=== PATIENT | male | born 1965 | race Caucasian/White ===

== ENCOUNTER 2019-09-11 16:14 | Emergency (ER) | payer OTHER ==
[~2019-09-11] VITALS: Ht 182.9 cm; Wt 104.0 kg
[~2019-09-11 16:14] MED LIST: TRAM50TA PO
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
[2019-09-11] MEDS ORDERED: ONDANSETRON PF 4 MG/2 ML VIAL. IVP ONE (16:45)
[2019-09-11] MEDS ORDERED: MORPHINE SULFATE 4 MG/ML VIAL. IV ONE (16:45)
--- NOTE | 2019-09-11 17:27 | RAD ---
CT HEAD AND CERVICAL SPINE WO, CT PELVIS WO CONTRAST, CT LUMBAR SPINE WO CONTRAST, CT THORACIC SPINE WO CONTRAST dated 09/11/2019 4:38 PM Indication:Reason: FELL OFF ROOF, HIT BACK OF HEAD, LOC, BACK PAIN, NECK PAIN, HEADACHE / Spl. Instructions: / History: Comparison: No comparison is available. Technique: Noncontrast images were performed. Sagittal and coronal reconstructions were obtained. One or more of the following individualized dose reduction techniques were utilized for this examination: 1. Automated exposure control 2. Adjustment of the mA and/or kV according to patient size 3. Use of iterative reconstruction technique Findings: CT head: There is no apparent intracranial hemorrhage or abnormal extra-axial fluid collection. No area of abnormal density is seen. The ventricles and basilar cisterns are normally positioned. Bone windows reveal no apparent fracture of the skull or abnormal sinus or mastoid opacification. CT cervical spine: Alignment is normal. There is no apparent loss of vertebral body height or prevertebral soft tissue swelling. No fracture line is seen. Mild degenerative changes are shown at the C5-6 and C6-7 discs. Evaluation of the soft tissue components of the spinal canal is limited without intrathecal contrast. CT thoracic spine: Alignment is normal. No acute fracture is identified. There are endplate irregularities throughout the mid and lower breast 6 spine. These are thought to be degenerative or developmental in nature. Evaluation of the soft tissue components of the canal is limited without intrathecal contrast. CT lumbar spine: There is anterior offset of L5 on S1 measuring about 7 mm. Alignment is otherwise normal. No acute fracture is seen. There are chronic pars defects of L5 allowing the anterolisthesis. There are degenerative changes of the L5-S1 disc with vacuum phenomenon. There is also mild narrowing of the disc at L4-5. There appears to be mild protrusion at this level. Evaluation of the soft tissue components of the canal is somewhat limited without intrathecal contrast. No destructive process is seen. CT PELVIS: No fracture is seen involving the bony pelvis. There is chronic deformity of the right ilium likely related to previous bone graft harvesting. There is a metallic sayda in the proximal left femur. No free fluid or other soft tissue abnormality is seen within the pelvis. IMPRESSION: CT head: No acute abnormality. CT cervical spine: Degenerative changes. No acute abnormality. CT thoracic spine: Degenerative changes. No acute abnormality. CT lumbar spine: L5-S1 spondylolisthesis. Degenerative changes. No acute abnormality. CT pelvis: No acute findings. Electronically signed by: Sergio Moody Jr., MD (09/11/2019 5:24 PM) [id number]
[2019-09-11] MEDS ORDERED: diazePAM 5 MG TABLET ONE (17:43)
[2019-09-11] MEDS ORDERED: HYDROcodone/APAP 10/325 1 TAB TABLET ONE (17:43)
[2019-09-11 17:45] VITALS: BP 122/76
[2019-09-11] MEDS ORDERED: HYDROcodone/APAP 10/325 1 TAB TABLET PO ONE (17:45)
[2019-09-11] MEDS ORDERED: diazePAM 5 MG TABLET PO ONE (17:45)
[2019-09-11] MEDS ORDERED: CYCL10TA2 PO (17:57)
[2019-09-11] MEDS ORDERED: HYDR-3164 PO (17:57)
== END 2019-09-11 18:00 | disposition home or self-care (01) ==
LOC: ER 16:14
DX: S06.0X1A Concussion with loss of consciousness of 30 minutes or less, initial encounter (principal); S30.0XXA Contusion of lower back and pelvis, initial encounter; M43.17 Spondylolisthesis, lumbosacral region; M54.2 Cervicalgia; M54.6 Pain in thoracic spine; W13.2XXA Fall from, out of or through roof, initial encounter; Y93.89 Activity, other specified; Y92.89 Other specified places as the place of occurrence of the external cause; Y99.8 Other external cause status
CPT/HCPCS: 70450; 72125; 72128; 72131; 72192; 96374; 96375; 99285; J2270; J2405